=== PATIENT | female | born 1995 | race African-American/Black ===

== ENCOUNTER 2016-11-25 20:02 | Emergency (ER) | payer MEDICAID ==
[~2016-11-25] VITALS: Ht 162.6 cm; Wt 63.5 kg
[2016-11-25 20:15] VITALS: BP 121/70
[2016-11-25] MEDS ORDERED: BACLOFEN 10 MG TAB PO ONE (23:45)
[2016-11-25] MEDS ORDERED: IBUPROFEN 600 MG TAB PO ONE (23:45)
== END 2016-11-26 00:32 | disposition home or self-care (01) ==
LOC: ER 20:05
DX: S50.01XA Contusion of right elbow, initial encounter (principal); V49.09XA Driver injured in collision with other motor vehicles in nontraffic accident, initial encounter; Y93.89 Activity, other specified; Y99.8 Other external cause status; Y92.89 Other specified places as the place of occurrence of the external cause